=== PATIENT | female | born 1955 | race Caucasian/White ===

== ENCOUNTER 2018-03-07 12:17 | Inpatient (IN) | payer OTHER ==
[2018-03-07] MEDS ORDERED: HYDROmorphONE 2 MG/ML SYG IV (12:49)
[2018-03-07] MEDS ORDERED: HYDROmorphONE 2 MG/ML SYG IM (13:07)
[2018-03-07 13:16] LABS: ADD MAN DIFF? NO
[2018-03-07 13:18] LABS: WHITE BLOOD COUNT 8.1 10^3/ul (4.8-10.8)
[2018-03-07 13:18] LABS: BASOPHILS % 0.4 % (0.0-2.0); EOSINOPHILS # 0.1 10^3/ul (0.0-0.5); EOSINOPHILS % 1.2 % (0.0-7.0); HEMATOCRIT 24.1 % (37.0-47.0); HEMOGLOBIN 7.2 g/dl (12.0-16.0); LYMPHOCYTES % 12.4 % (15.0-51.0); MEAN CORPUSCULAR HGB CONC 29.9 g/dl (32.0-37.0); MEAN PLATELET VOLUME 8.7 fl (7.4-10.4); MONOCYTE # 0.6 10^3/ul (0.3-0.9); NEUTROPHIL # 6.4 10^3/ul (1.6-7.5); NEUTROPHILS % 78.6 % (39.0-77.0); PLATELET COUNT 409 10^3/UL (140-415); RED BLOOD COUNT 2.77 10^6/ul (4.20-5.40); RED CELL DISTRIBUTION WIDTH 20.4 % (11.5-14.5)
[2018-03-07] MEDS: HYDROmorphONE 0.5 MG/0.5 ML SYG IM (13:19)
[2018-03-07 13:35] LABS: ALANINE AMINOTRANSFERASE 23 IU/L (13-69); ALBUMIN 2.8 g/dl (3.3-4.9); ALBUMIN/GLOBULIN RATIO 1.16; ALKALINE PHOSPHATASE 50 IU/L (42-121); ANION GAP 11 (8-16); ASPARTATE AMINO TRANSFERASE 18 IU/L (15-46); BILIRUBIN,INDIRECT 0.2 mg/dl (0-1.1); BILIRUBIN,TOTAL 0.2 mg/dl (0.2-1.3); BLOOD UREA NITROGEN 36 mg/dl (7-20); CALCIUM 8.1 mg/dl (8.4-10.2); CARBON DIOXIDE 21 mmol/L (21-31); CHLORIDE 107 mmol/L (97-110); CREATININE 0.49 mg/dl (0.44-1.00); GLUCOSE 129 mg/dl (70-220); LIPASE 60 U/L (23-300); POTASSIUM 4.1 mmol/L (3.5-5.1); SODIUM 135 mmol/L (135-144); TOTAL PROTEIN 5.2 g/dl (6.1-8.1)
[2018-03-07 13:37] LABS: INR 1.05; PROTIME 13.8 Sec (11.9-14.9); PT RATIO 1.1
[2018-03-07 13:48] LABS: ETHANOL < 10.0 mg/dl
[2018-03-07 13:48] LABS: TROPONIN-I < 0.012 ng/ml (0.000-0.120)
[2018-03-07] MEDS: OCTREOTIDE 50 MCG in SOD CHLORIDE 0.9% 25 ML IVPB (14:47)
[2018-03-07] MEDS: PANTOPRAZOLE IV 80 MG in SOD CHLORIDE 0.9% 100 ML IVPB (14:47)
[2018-03-07] MEDS: ONDANSETRON 4 MG INJ IV ×2 (14:52→15:49)
[2018-03-07] MEDS: SOD CHLORIDE 0.9% 1,000 ML IV (14:53)
[2018-03-07] MEDS: PANTOPRAZOLE IV 80 MG in SOD CHLORIDE 0.9% 100 ML IV (15:11)
[2018-03-07] MEDS: LIDOCAINE 2% VISC 15 ML CUP MM (15:15)
[2018-03-07] MEDS: OCTREOTIDE 500 MCG in SOD CHLORIDE 0.9% 49 ML IV (15:21)
[2018-03-07] MEDS ORDERED: NACL 0.9% 3 ML SYG IV (15:30)
[2018-03-07] MEDS: morphine 2 MG INJ IV ×2 (15:49→22:56)
[2018-03-07] MEDS: D5W-0.45 NACL + KCL 20 MEQ 1,000 ML IV (15:50)
[2018-03-07] MEDS: LORAZEPAM 2 MG INJ IV ×2 (16:34→22:56)
[2018-03-07] MEDS: METOCLOPRAMIDE 10 MG INJ (18:02)
[2018-03-07] MEDS: PROPOFOL 20 ML (18:12)
[2018-03-07] MEDS: SUCRALFATE (100 MG/ML) 10ML CUP NGT ×2 (20:56→20:58)
[2018-03-08] MEDS: OCTREOTIDE 1 MG in DEXTROSE 5% 95 ML IV (02:51)
[2018-03-08] MEDS: D5W-0.45 NACL + KCL 20 MEQ 1,000 ML IV ×4 (02:51→23:25)
[2018-03-08] MEDS: PANTOPRAZOLE IV 80 MG in SOD CHLORIDE 0.9% 100 ML IV ×3 (02:51→23:06)
[2018-03-08] MEDS: morphine 2 MG INJ IV ×4 (03:40→13:45)
[2018-03-08 06:45] LABS: ADD MAN DIFF? NO
[2018-03-08 06:52] LABS: ABNORMAL IP MESSAGE 1; BASOPHILS % 0.2 % (0.0-2.0); EOSINOPHILS # 0.1 10^3/ul (0.0-0.5); HEMATOCRIT 18.8 % (37.0-47.0); LYMPHOCYTES # 2.1 10^3/ul (0.8-2.9); LYMPHOCYTES % 35.1 % (15.0-51.0); MEAN CORPUSCULAR HEMOGLOBIN 25.8 pg (29.0-33.0); MEAN CORPUSCULAR HGB CONC 29.8 g/dl (32.0-37.0); MEAN CORPUSCULAR VOLUME 86.6 fl (82.0-101.0); MEAN PLATELET VOLUME 8.8 fl (7.4-10.4); MONOCYTE # 0.8 10^3/ul (0.3-0.9); MONOCYTES % 12.3 % (0.0-11.0); NEUTROPHIL # 3.1 10^3/ul (1.6-7.5); NEUTROPHILS % 50.9 % (39.0-77.0); PLATELET COUNT 367 10^3/UL (140-415); RED BLOOD COUNT 2.17 10^6/ul (4.20-5.40); RED CELL DISTRIBUTION WIDTH 20.8 % (11.5-14.5)
[2018-03-08 06:52] LABS: WHITE BLOOD COUNT 6.1 10^3/ul (4.8-10.8)
[2018-03-08 07:05] LABS: POSITIVE DIFF @See below
[2018-03-08 07:07] LABS: HEMOGLOBIN 5.6 g/dl (12.0-16.0)
[2018-03-08 07:08] LABS: PATH REVIEW? YES
[2018-03-08 07:11] LABS: ALANINE AMINOTRANSFERASE 24 IU/L (13-69); ALBUMIN 2.4 g/dl (3.3-4.9); ALBUMIN/GLOBULIN RATIO 1.04; ALKALINE PHOSPHATASE 44 IU/L (42-121); ANION GAP 6 (8-16); ASPARTATE AMINO TRANSFERASE 15 IU/L (15-46); BILIRUBIN,INDIRECT 0.2 mg/dl (0-1.1); BILIRUBIN,TOTAL 0.2 mg/dl (0.2-1.3); BLOOD UREA NITROGEN 21 mg/dl (7-20); CALCIUM 7.9 mg/dl (8.4-10.2); CARBON DIOXIDE 24 mmol/L (21-31); CHLORIDE 112 mmol/L (97-110); GLUCOSE 175 mg/dl (70-220); MAGNESIUM 1.6 mg/dl (1.7-2.5); PHOSPHORUS 3.2 mg/dl (2.5-4.9); POTASSIUM 4.6 mmol/L (3.5-5.1); SODIUM 137 mmol/L (135-144); TOTAL PROTEIN 4.7 g/dl (6.1-8.1)
[2018-03-08 08:15] LABS: IMMEDIATE SPIN CROSSMATCH 1 3
[2018-03-08] MEDS: SOD CHLORIDE 0.9% 250 ML IV (08:22)
[2018-03-08 08:43] LABS: BARBITURATES NEGATIVE (NEGATIVE); BENZODIAZEPINES POSITIVE (NEGATIVE); CANNABINOIDS POSITIVE (NEGATIVE)
[2018-03-08 08:44] LABS: COCAINE NEGATIVE (NEGATIVE); OPIATES POSITIVE (NEGATIVE)
[2018-03-08 08:45] LABS: AMPHETAMINE/METHAMPHETAMINE POSITIVE (NEGATIVE)
[2018-03-08] MEDS: SUCRALFATE (100 MG/ML) 10ML CUP NGT ×4 (09:05→21:25)
[2018-03-08 09:08] LABS: ANISOCYTOSIS 2+ (0-0); BASOPHILS % (M) 1 % (0-2); LYMPHOCYTES #M 2.3 10^3/ul (0.8-2.9); LYMPHOCYTES % (M) 39 % (15-51); MONOCYTE #M 0.6 10^3/ul (0.3-0.9); MONOCYTES % (M) 10 % (0-11); PLATELET ESTIMATE NORMAL; POLYCHROMASIA 3+ (0-0); SEGMENTED NEUTROPHILS (M) % 50 % (39-77); SMUDGE%M 3 % (0-0)
[2018-03-08] MEDS ORDERED: morphine LIQ (10 MG/5 ML) CUP PO (15:30)
[2018-03-08] MEDS: MAGNESIUM OXIDE 400 MG TAB PO ×2 (16:30→21:24)
[2018-03-08] MEDS: morphine LIQ (10 MG/5 ML) CUP NGT ×2 (16:31→21:25)
[2018-03-08] MEDS: MULTIVITAMINS 10 ML, THIAMINE 100 MG, FOLIC ACID 1 MG in SOD CHLORIDE 0.9% 1,000 ML IVPB (17:13)
[2018-03-08 18:31] LABS: HEMATOCRIT 28.4 % (37.0-47.0); HEMOGLOBIN 8.9 g/dl (12.0-16.0)
[2018-03-08] MEDS: CYCLOBENZAPRINE 10 MG TAB PO (18:37)
[2018-03-09] MEDS: HYDROCODONE/APAP (5/325) TAB PO ×4 (00:27→20:11)
[2018-03-09] MEDS: LORAZEPAM 2 MG INJ IV ×2 (00:38→12:19)
[2018-03-09 01:02] LABS: HEMATOCRIT 31.7 % (37.0-47.0); HEMOGLOBIN 9.8 g/dl (12.0-16.0)
[2018-03-09] MEDS: morphine LIQ (10 MG/5 ML) CUP NGT (04:04)
[2018-03-09] MEDS: PANTOPRAZOLE IV 80 MG in SOD CHLORIDE 0.9% 100 ML IV ×2 (06:12→08:29)
[2018-03-09 07:16] LABS: HEMATOCRIT 25.4 % (37.0-47.0)
[2018-03-09 07:42] LABS: ANION GAP 9 (8-16); BLOOD UREA NITROGEN 10 mg/dl (7-20); CALCIUM 8.1 mg/dl (8.4-10.2); CARBON DIOXIDE 23 mmol/L (21-31); CHLORIDE 109 mmol/L (97-110); CREATININE 0.54 mg/dl (0.44-1.00); GLUCOSE 97 mg/dl (70-220); MAGNESIUM 1.6 mg/dl (1.7-2.5); POTASSIUM 3.6 mmol/L (3.5-5.1); SODIUM 137 mmol/L (135-144)
[2018-03-09] MEDS: D5W-0.45 NACL + KCL 20 MEQ 1,000 ML IV ×3 (08:30→23:25)
[2018-03-09] MEDS: MULTIVITAMINS 10 ML, THIAMINE 100 MG, FOLIC ACID 1 MG in SOD CHLORIDE 0.9% 1,000 ML IVPB (08:31)
[2018-03-09] MEDS: SUCRALFATE (100 MG/ML) 10ML CUP NGT ×4 (08:34→20:10)
[2018-03-09] MEDS: MAGNESIUM OXIDE 400 MG TAB PO ×2 (08:34→20:10)
[2018-03-09] MEDS: morphine 2 MG INJ IV ×3 (12:29→22:03)
[2018-03-09 12:34] LABS: HEMOGLOBIN 7.9 g/dl (12.0-16.0)
[2018-03-09] MEDS: DIATR MEGLU/DIATRIZOATE SODIUM 120 ML BTL (14:03)
[2018-03-09] MEDS: MAGNESIUM SULFATE 2 GM/50 ML 50 ML IVPB (14:15)
[2018-03-09] MEDS ORDERED: HYOSCYAMINE 0.125 MG SUBL TAB SL (17:00)
[2018-03-09 18:08] LABS: HEMATOCRIT 31.9 % (37.0-47.0); HEMOGLOBIN 9.9 g/dl (12.0-16.0)
[2018-03-09] MEDS: PANTOPRAZOLE (EC) 40 MG TAB PO (18:14)
[2018-03-10] MEDS: morphine 2 MG INJ IV (01:58)
[2018-03-10] MEDS: LORAZEPAM 2 MG INJ IV (03:19)
[2018-03-10 05:11] LABS: URINE DRUG SCREEN RESULT DRUG(S) DETECTED:
[2018-03-10] MEDS: HYDROCODONE/APAP (5/325) TAB PO ×2 (05:36→08:44)
[2018-03-10] MEDS: PANTOPRAZOLE (EC) 40 MG TAB PO (05:36)
[2018-03-10 07:18] LABS: HEMATOCRIT 27.1 % (37.0-47.0); HEMOGLOBIN 8.4 g/dl (12.0-16.0)
[2018-03-10] MEDS: D5W-0.45 NACL + KCL 20 MEQ 1,000 ML IV (07:25)
[2018-03-10 07:27] LABS: INR 0.92; PROTIME 12.4 Sec (11.9-14.9)
[2018-03-10 07:37] LABS: ANION GAP 10 (8-16); BLOOD UREA NITROGEN 7 mg/dl (7-20); CALCIUM 7.9 mg/dl (8.4-10.2); CARBON DIOXIDE 24 mmol/L (21-31); CHLORIDE 108 mmol/L (97-110); CREATININE 0.56 mg/dl (0.44-1.00); GLUCOSE 110 mg/dl (70-220); MAGNESIUM 1.8 mg/dl (1.7-2.5); POTASSIUM 3.9 mmol/L (3.5-5.1); SODIUM 138 mmol/L (135-144)
[2018-03-10] MEDS: SUCRALFATE (100 MG/ML) 10ML CUP NGT ×2 (08:43→12:19)
[2018-03-10] MEDS: MAGNESIUM OXIDE 400 MG TAB PO (08:45)
[2018-03-10] MEDS: MULTIVITAMINS 10 ML, THIAMINE 100 MG, FOLIC ACID 1 MG in SOD CHLORIDE 0.9% 1,000 ML IVPB (09:00)
[2018-03-10] MEDS ORDERED: HYOSCYAMINE 0.125 MG TAB PO (10:30)
[2018-03-10] MEDS: PAROXETINE 20 MG TAB PO (11:59)
[2018-03-10 14:06] LABS: OCCULT BLOOD STOOL POSITIVE (NEGATIVE)
== END 2018-03-10 13:11 | disposition home or self-care (01) | DRG 391 ==
LOC: MS4 17:29 → E/R 12:17 → MS4 14:47
PROVIDERS: Pediatrics
PROC: 0DJ08ZZ Inspection of Upper Intestinal Tract, Via Natural or Artificial Opening Endoscopic (ICD-10-PCS; principal; 2018-03-07 17:00)
PROC: 30233N1 Transfusion of Nonautologous Red Blood Cells into Peripheral Vein, Percutaneous Approach (ICD-10-PCS; 2018-03-07 17:00)
DX: K44.9 Diaphragmatic hernia without obstruction or gangrene (principal); K22.11 Ulcer of esophagus with bleeding; D62 Acute posthemorrhagic anemia; F11.20 Opioid dependence, uncomplicated; D50.0 Iron deficiency anemia secondary to blood loss (chronic); F10.20 Alcohol dependence, uncomplicated; G89.4 Chronic pain syndrome; R10.9 Unspecified abdominal pain; R11.2 Nausea with vomiting, unspecified; K27.9 Peptic ulcer, site unspecified, unspecified as acute or chronic, without hemorrhage or perforation; E03.9 Hypothyroidism, unspecified; F12.10 Cannabis abuse, uncomplicated; F15.10 Other stimulant abuse, uncomplicated; Z79.1 Long term (current) use of non-steroidal anti-inflammatories (NSAID); Z87.11 Personal history of peptic ulcer disease; Z90.710 Acquired absence of both cervix and uterus; Z86.73 Personal history of transient ischemic attack (TIA), and cerebral infarction without residual deficits
CPT/HCPCS: 36415; 36430; 71045; 74019; 74176; 74240; 74250; 80048; 80053; 80307; 82270; 83690; 83735; 84100; 84484; 85014; 85018; 85025; 85610; 85730; 86850; 86900; 86901; 86920; 87075; 93005; 96361; 96372; 96374; 96375; 96376; 99291-25